=== PATIENT | female | born 1950 | race Caucasian/White ===

== ENCOUNTER → 2016-08-12 | Day surgery (SDC) | payer MEDICARE, OTHER ==
--- NOTE | 2016-08-04 09:33 | MH ---
cc: LISA ROCK DATE OF ADMISSION: 08/12/2016 PRINCIPAL DIAGNOSIS Right breast lobular carcinoma. ATTENDING PHYSICIAN Lisa Rock MD HISTORY OF PRESENT ILLNESS The patient is a 66-year-old female noted to have some discoloration of the upper outer right breast skin in October of 2015. A bilateral diagnostic mammogram at that time was unremarkable and breast MRI was recommended. This was performed on November 30 and was classified as BI-RADS 3 with a benign appearing enhancing density in the upper outer right breast which was 1.4 x 0.6 centimeters and a separate 6-mm benign enhancing nodule was noted in the outer left breast. There was no ultrasound correlate with these lesions. A 6-month follow-up MRI on June 06 demonstrated an increase in the enhancement and nodularity of the right breast lesion which was now 1.5 x 0.8 cm. The left breast nodule remained stable. MR guided right breast biopsy was performed on June 24 and demonstrated invasive lobular carcinoma classic type. She now presents for definitive surgical therapy. She has had a benign left breast lumpectomy in 1990. PAST MEDICAL HISTORY Her only medical problem is anxiety. PAST SURGERIES 1. Included three sections. 2. Open cholecystectomy in 1985. 3. Total abdominal hysterectomy and bilateral salpingo-oophorectomy in 1989. 4. She has also had bilateral cataract surgery. CURRENT MEDICATIONS 1. Vagifem twice a week which she stopped approximately 1 month ago. 2. She also takes Paxil 10 mg daily. 3. Celebrex 100 mg p.r.n. 4. Flonase p.r.n. 5. Ativan 0.5 mg t.i.d. p.r.n. ALLERGIES SHE HAS AN ADVERSE DRUG REACTION TO AUGMENTIN WHICH IS ASSOCIATED WITH GI UPSET AND TYLOX CAUSES NAUSEA. METROGEL IS ASSOCIATED WITH URTICARIA. REPRODUCTIVE HISTORY G4, P3, A1. Menarche age 9, first child age 23, surgical menopause age 40. She was taken hormone replacement until one month ago although she is still using a vaginal hormone cream for lubrication and dryness and I have recommended stopping it. FAMILY HISTORY Noncontributory. REVIEW OF SYSTEMS 12-point review of systems was otherwise noncontributory. PHYSICAL EXAMINATION VITAL SIGNS: She is 4 feet 10 and weighs 128 pounds with a BMI of 26.8. Blood pressure was 155/83, temperature 96.6, heart rate 76, respirations 16. HEENT: Exam was unremarkable. NECK: The neck was supple with no adenopathy or thyromegaly. CHEST: Clear throughout. CARDIOVASCULAR: Exam revealed a normal S1 and S2 with no murmurs, rubs or gallops. BREASTS: Exam revealed fibrocystic changes and the left breast was larger than the right. There were no palpable breast masses, although there was some slight crusting of the left nipple. There was a healed biopsy site in the upper outer right breast and minimal discoloration in the 10 o'clock periareolar right breast. ABDOMEN: The abdomen was soft and nontender throughout with no masses. There was a right upper quadrant and low midline scar and no evidence of hernias. MUSCULOSKELETAL: Examination normal. SKIN: Examination normal. NEUROLOGIC: Examination normal. PSYCHIATRIC: Examination normal. IMPRESSION Ms. Soni has a clinical stage I classic lobular carcinoma of the right breast. She is opting for breast conservation and I have recommended a needle-localized lumpectomy and sentinel lymph node biopsy, followed by whole breast radiation. She understands the risks and benefits of the procedure and has agreed to proceed. MD OJNATHAN Morris/MITZI /3:20 PM /9:30 AM
[~2016-08-12] MED LIST: BUPIVACAINE HCL PF 0.5% 30 ML VIAL ONE; DARV; ISOSULFAN BLUE 50 MG/5 ML VIAL SQ ONE; KETOROLAC TROMETHAMINE 30 MG/ML (IVP) VIAL ONE; LACTATED RINGER'S 1000 ML INJ 1,000 ML ONE; MIDAZOLAM HCL 2 MG/2 ML VIAL ONE; ONDANSETRON HCL 4 MG/2 ML VIAL IV PUSH ONE; PROPOFOL 200 MG/20 ML AMP IV ONE; SODIUM CHLORIDE 0.9% INJ 10 ML ONE; ceFAZolin 2 GM PREMIX 50 ML ONE
--- NOTE | 2016-08-12 12:58 | TN ---
cc: LISA ROCK M.D. DATE OF SURGERY 08/12/2016 PRINCIPAL DIAGNOSIS Right breast classic lobular carcinoma. POSTOPERATIVE DIAGNOSIS Right breast classic lobular carcinoma. PROCEDURE PERFORMED Right breast needle-localized lumpectomy and right axillary sentinel lymph node biopsy. SURGEON Lisa Rock. ANESTHESIA General via LMA device. INDICATION The patient is a 66-year-old female noted to have some vague skin discoloration with negative imaging. Breast MRI demonstrated an area of enhancement which changed over time and MR guided biopsy of the area demonstrated classic lobular carcinoma in the 10 o'clock location 3 cm from the nipple. She now presents for definitive surgical therapy. FINDINGS AT THE TIME OF SURGERY Two sentinel lymph nodes were removed. #1 had a count of 60 and was not blue and #2 was mildly suspicious and had no radioactive count. Background count was 20. Specimen mammogram did demonstrate an intact wire and the biopsy clip was within the tissue. PROCEDURE PERFORMED After informed consent was obtained and site verification was performed, the patient was brought to the radiology suite where she underwent needle localization of her prior right breast biopsy site, as well as kimmy tumor radionuclide injection. She was then brought to the major operating room where she underwent general anesthesia via an LMA device. She was given a single dose of IV Ancef and sequential compression hose were placed. 3 cc of half-strength Lymphazurin were injected in the subareolar right breast with a 5-minute massage. The right breast and arm were then prepped and draped in a sterile fashion. An incision was anesthetized at the inferior aspect of the right axillary hairline and both sharp and electrocautery dissection were performed until the clavipectoral fascia was divided and the level I axilla was entered. There was a mid level I palpable enlarged 1 cm lymph node which was circumferentially dissected free from surrounding structures using the harmonic scalpel. This lymph node had no count and was not blue, but it was sent as a sentinel node because it was suspicious. An upper medial lymph node close to the chest wall was circumferentially dissected free from surrounding structures using the harmonic scalpel. This node had a count of 60 and was not blue. This became sentinel lymph node #1. There was no other palpable adenopathy and background count was 20. Good hemostasis was noted and the wound was closed using interrupted 3-0 Vicryl subcutaneous sutures and a 4-0 Monocryl subcuticular suture. Attention was then turned to the right breast where a wire was identified in the 10 o'clock location. Because of the mild skin changes, an ellipse of overlying skin was included in the periareolar incision at 10 o'clock. Sharp dissection was performed, as well as electrocautery until the wire entry point through the skin was identified and secured with a hemostat. The wire was cut off at the skin with pin cutters and a 2-0 silk transfixion suture was placed at the wire entry point into the breast tissue. Both sharp and electrocautery dissection were performed circumferentially around the wire and the specimen was oriented with two sutures superiorly, skin anteriorly, and one long suture laterally. Inspection of the specimen did demonstrate that the medial and inferior margins appeared close and each of these was separately excised with a stitch on the new margin and they were sent separately for permanent pathologic evaluation. Good hemostasis was noted and the wound was closed using interrupted 3-0 Vicryl subcutaneous sutures and a 4-0 Monocryl subcuticular suture. Steri-Strips and sterile dressing were applied. The patient tolerated the procedure well with an estimated blood loss of 50 cc and she was extubated in the operating room and brought to recovery room in good condition. All sponge and needle counts were correct at the conclusion of the case. MD JONATHAN Morris/RUDY /12:33 PM /12:48 PM ANDRES
== END | disposition home or self-care (01) ==
LOC: ESDC 07:15
PROVIDERS: ATTEND Surgery
DX: C50.411 Malignant neoplasm of upper-outer quadrant of right female breast (principal)
CPT/HCPCS: 00400; 01610; 19125; 38525; 88307; J0690; J1885; J2250; J2405; J3010; J7120; Q9968